=== PATIENT | male | born 1985 | race Hispanic/Latino ===

== ENCOUNTER → 2024-05-15 | Outpatient (CLI) | payer OTHER, SELFPAY ==
--- NOTE | 2024-05-15 09:12 | RAD_ITS ---
STUDY: X-RAY - RIGHT HAND, ATTENTION RIGHT THUMB. REASON FOR EXAM: Male, 39 years old. Right thumb injury TECHNIQUE: 3 view(s) of the finger were obtained. COMPARISON: None. FINDINGS: Normal metacarpal head. Normal metacarpophalangeal joint. Normal proximal phalanx. Normal distal phalanx. Normal distal interphalangeal joint. Radiopaque density seen overlying the tuft of the distal phalanx of the thumb. Soft tissue swelling. RAD/Finger(s) Min 2 Views IMPRESSION: Soft tissue swelling. No fracture is seen. There is evidence of a radiopaque material in the soft tissues overlying the tuft of the distal phalanx of the thumb. Electronically Signed: Yinka Donato MD at 9:45 EDT ,
== END | disposition home or self-care (01) ==
LOC: MTRAD 09:12
PROVIDERS: Referring Provider Physician Assistant; Visit Provider Physician Assistant
DX: S61.011A Laceration without foreign body of right thumb without damage to nail, initial encounter (principal); X58.XXXA Exposure to other specified factors, initial encounter
CPT/HCPCS: 73140